=== PATIENT | female | born 1985 | race Caucasian/White ===

== ENCOUNTER 2019-10-18 17:16 | Inpatient (IN) | payer OTHER ==
[~2019-10-18] VITALS: Ht 160 cm; Wt 56.7 kg
[~2019-10-18 17:16] MED LIST: ACCUNEB 0.1.25 MG/1 INH; ALLEGRA180 MG PO; ANAPROX DS550 MG PO; BIAXIN500 MG PO; BUSPAR5 MG PO; CLARITIN10 MG PO; CLINDAMYCIN HC300 MG PO; CYMBALTA20 M1 PO; ERYTHROMYCIN5 MG/G1 OP; FLEXERIL10 MG PO; HYDROCODONE BIT1 T11 PO; IBU-6600 MG PO; IBU800 MG PO; KLONOPIN0.5 MG PO; MEDROL DOSEPAK4 MG; NAPROSYN500 MG PO; NEURONTIN300 MG PO; PHENERGAN W/DM120 ML PO; TRAMADOL HCL50 MG PO; TRAMADOL50 MG PO; VIBRAMYCIN100 MG PO; VICODIN 500 MG-1 TAB
[2019-10-18 17:23] VITALS: BP 114/77
[2019-10-18 17:54] LABS: BILIRUBIN 1+ (NEGATIVE); BLOOD 3+ (NEGATIVE); CLARITY CLOUDY (CLEAR); COLOR ORANGE (YELLOW); GLUCOSE NEGATIVE (NEGATIVE); KETONE NEGATIVE (NEGATIVE); LEUKO ESTERASE TRACE (NEGATIVE); NITRITE POSITIVE (NEGATIVE); PH 5.5 (5.0-9.0); SPECIFIC GRAVITY >= 1.030 (1.005-1.030)
[2019-10-18 18:03] LABS: BACTERIA 4+; EPITHELIAL CELLS 31-40
[2019-10-18 18:04] LABS: MUCOUS 3+; WBC 31-40 wbc/hpf (0-5)
[2019-10-18 18:28] LABS: BASO % 0.2 % (0.0-1.0); EOS # 0.1 10*3/uL (0.0-0.4); EOS % 0.3 % (1.0-4.0); HEMATOCRIT 36.3 % (37.0-47.0); HEMOGLOBIN 12.4 g/dl (12.0-16.0); LYMPH % 5.4 % (27.0-41.0); MEAN CELL VOLUME 86.6 fl (81.0-99.0); MEAN CORPUSCULAR HGB 29.6 pg (27.0-31.0); MEAN CORPUSCULAR HGB CONC 34.2 g/dl (33.0-37.0); MEAN PLATELET VOLUME 10.1 fl (9.6-12.3); MONO # 0.8 10*3/uL (0.1-1.0); MONO % 4.3 % (3.0-9.0); NEUT # 16.3 10*3/uL (2.3-7.9); NEUT % 88.7 % (47.0-73.0); PLATELET COUNT AUTOMATED 281 10*3/uL (130-400); RED BLOOD COUNT 4.19 10*6/uL (4.10-5.10); WHITE BLOOD COUNT 18.3 10*3/uL (4.8-10.8)
[2019-10-18 18:43] LABS: ALKALINE PHOSPHATASE 108 U/L (45-117); BUN 12 mg/dl (7-24); CHLORIDE 99 mmol/L (98-107); CREATININE 0.75 mg/dL (0.55-1.02); POTASSIUM 3.5 mmol/L (3.5-5.1); SGOT/AST 7 IU/L (3-35); SGPT/ALT 13 U/L (12-78); SODIUM 132 mmol/L (136-145); TOTAL PROTEIN 7.8 gm/dL (6.4-8.2)
--- NOTE | 2019-10-18 20:55 | NUR ---
PT REMAINS W/O ACUTE DISTRESS NOTED WITH FAMILY @ BEDSIDE,SAFETY PRECAUTIONS INTACT AND CALL LIGHT WITHIN REACH,PAIN RELIEF WITH MEDS.
[2019-10-18 21:30] VITALS: BP 113/69
[2019-10-18 22:32] VITALS: BP 104/54
[2019-10-18 22:36] VITALS: BP 104/54
--- NOTE | 2019-10-18 23:00 | NUR ---
A 34, admitted to 4E, under the services of STEVE Martinez MD with a diagnosis of SEVERE LOWER ABDOMINAL PAIN. Chief complaint is ABDOMINAL PAIN. Patient arrived via stretcher from ER. Monitor applied. Initial assessment completed. Vital signs taken and recorded. STEVE MARTINEZ MD notified of admission to the unit. Orders received. See assessment for past medical history, medications and allergies. Patient and/or family oriented to . visitation policy reviewed. Clothing/patient valuable form completed. HANNA WRIGHT RN
[2019-10-18] MEDS ORDERED: GABAPENTIN600 MG PO (23:04)
[2019-10-18] MEDS ORDERED: PANTOPRAZOLE SO40 MG PO (23:04)
[2019-10-18] MEDS ORDERED: ATARAX,VISTARIL50 MG PO (23:04)
[2019-10-18] MEDS ORDERED: VENLAFAXINE HC100 MG PO (23:05)
[2019-10-18] MEDS ORDERED: GOOD NEIGHBOR L10 MG PO (23:05)
[2019-10-18] MEDS ORDERED: ONDANSETRON HYDR4 MG PO (23:06)
--- NOTE | 2019-10-18 23:26 | NUR ---
DR. ARMSTRONG NOTIFIED OF PATIENT MEDICATION RECONCILIATION COMPLETED. ORDERS RECEIVED,SEE EMAR AND ORDERS.
--- NOTE | 2019-10-18 23:37 | NUR ---
DR. ARMSTRONG NOTIFIED AT THIS TIME THAT PER PHARMACY SCREEN UNASYN 1.5 GRAM IS UNAVAILABLE AT THIS TIME A SUBSTITUTION IS REQUIRED. PHARMACY CLOSED FOR THE DAY UNABLE TO CONSULT PHARMACIST FOR CONFORMATION OF SHORTAGE. PER [facility] [employer] F[employer] IT IS UNAVAILABE IN FACILITY AT THIS TIME. OTHER ORDERS RECEIVED, SEE EMAR.
--- NOTE | 2019-10-18 23:44 | NUR ---
DR. FRIAS NOTIFIED AT THIS TIME OF SURGICAL CONSULT, HE STATED THAT HE WAS MADE AWARE FROM ER.
[2019-10-19] VITALS: BP 112/63
--- NOTE | 2019-10-19 00:45 | NUR ---
PATIENT MEDICATED AT THIS TIME WITH PRN DILAUDID FOR RLQ ABDOMINAL PAIN. PATIENT ALERT AND ORIENTED AT THIS TIME.
--- NOTE | 2019-10-19 03:46 | NUR ---
24 HOUR CHART CHECK COMPLETE
[2019-10-19 06:01] LABS: BUN 10 mg/dl (7-24); CHLORIDE 104 mmol/L (98-107); POTASSIUM 3.2 mmol/L (3.5-5.1); SODIUM 135 mmol/L (136-145)
[2019-10-19 06:06] LABS: BASO % 0.2 % (0.0-1.0); EOS # 0.3 10*3/uL (0.0-0.4); EOS % 2.4 % (1.0-4.0); HEMATOCRIT 31.5 % (37.0-47.0); HEMOGLOBIN 10.4 g/dl (12.0-16.0); LYMPH # 0.7 10*3/uL (1.3-4.4); LYMPH % 5.3 % (27.0-41.0); MEAN CELL VOLUME 88.7 fl (81.0-99.0); MEAN CORPUSCULAR HGB 29.3 pg (27.0-31.0); MEAN PLATELET VOLUME 10.5 fl (9.6-12.3); MONO # 0.7 10*3/uL (0.1-1.0); MONO % 5.2 % (3.0-9.0); NEUT # 11.1 10*3/uL (2.3-7.9); PLATELET COUNT AUTOMATED 231 10*3/uL (130-400); RED BLOOD COUNT 3.55 10*6/uL (4.10-5.10); RED CELL DISTRI WIDTH 14.1 % (0-14.5); WHITE BLOOD COUNT 12.9 10*3/uL (4.8-10.8)
--- NOTE | 2019-10-19 07:30 | NUR ---
DR ARMSTRONG HERE TO ASSESS PATIENT AND DISCUSS PLAN OF CARE
[2019-10-19 08:00] VITALS: BP 122/60
--- NOTE | 2019-10-19 08:12 | NUR ---
medciated with demerol and zofran iv per prn order for complaints of rlq abd / flank pain rating a 10+. zofran also provided for nausea. will monitor
--- NOTE | 2019-10-19 08:50 | NUR ---
DR FRIAS HERE TO ASSESS PATIENT AND DISCUSS PLAN OF CARE
--- NOTE | 2019-10-19 09:00 | NUR ---
states meds helping.
--- NOTE | 2019-10-19 09:50 | NUR ---
FAMILY PRESENT ON FLOOR. MOTHER UPSET, STATING PATIENT CAN NOT GO 24+ HRS WITHOUT PROPER CARE - SHE WILL NOT "WATCH MY DAUGHTER ." CONCERNS ADDRESSED AND WILL RELAY INFO TO PRIMARY DR VALVERDE SURGEON.
--- NOTE | 2019-10-19 10:10 | NUR ---
SPOKE WITH ONE CALL FROM [facility]. LABS AND SCANS REVIEWED. FAMILY PRESENT AT BEDSIDE AND INFORMED OF PENDING TRANSFER
--- NOTE | 2019-10-19 10:22 | NUR ---
dr hickman called in. accepting dr is dr santiago at [facility]
--- NOTE | 2019-10-19 10:25 | NUR ---
again c/o pain. requesting pain meds. stat order received
--- NOTE | 2019-10-19 10:41 | NUR ---
STAT DEMEROL AND ZOFRAN GIVEN IV FOR COMPLAINTS OF RLQ/RIGHT FLANK PAIN RATING A 10 AND TO ASSIST WITH NAUSEA. WILL MONITOR
--- NOTE | 2019-10-19 10:55 | NUR ---
[facility] FOR TRANSPORT TO [facility]. PATIENT AND BELONGINGS LOADED. PATIENT DISCHARGED IN CARE OF AMBULANCE
--- NOTE | 2019-10-19 10:57 | NUR ---
DR ARMSTRONG CONTACTED AND INFORMED PATIENT BEING TRASNFERRED TO [facility]
--- NOTE | 2019-10-19 11:15 | NUR ---
REPORT CALLED TO KANDI AT [facility]. PATIENT TRANSFERRING VIA [facility] TO ROOM [id number]
== END 2019-10-19 11:15 | disposition short-term general hospital (02) | DRG 248 ==
LOC: ED 17:16 → 4E 22:01
PROVIDERS: Emergency Medicine; Nurse Practitioner Family; ADMIT Internal Medicine
DX: K35.33 Acute appendicitis with perforation, localized peritonitis, and gangrene, with abscess (principal); F32.9 Major depressive disorder, single episode, unspecified; F41.1 Generalized anxiety disorder; E87.6 Hypokalemia; Z88.1 Allergy status to other antibiotic agents; Z88.8 Allergy status to other drugs, medicaments and biological substances

== ENCOUNTER → 2019-11-04 | Outpatient (CLI) | payer OTHER ==
[~2019-11-04] MED LIST changes: +ATARAX,VISTARIL50 MG PO; +GABAPENTIN600 MG PO; +GOOD NEIGHBOR L10 MG PO; +ONDANSETRON HYDR4 MG PO; +PANTOPRAZOLE SO40 MG PO; +VENLAFAXINE HC100 MG PO
== END | disposition home or self-care (01) ==
LOC: CT 10:57
DX: K35.33 Acute appendicitis with perforation, localized peritonitis, and gangrene, with abscess (principal)

== ENCOUNTER 2021-05-23 16:09 | Emergency (ER) | payer OTHER ==
[~2021-05-23] VITALS: Ht 160 cm; Wt 68.0 kg
[2021-05-23 16:32] VITALS: BP 137/78
[2021-05-23] MEDS ORDERED: HYDROCODONE-AC1 EAC1 PO (17:07)
== END 2021-05-23 18:41 | disposition home or self-care (01) ==
LOC: ED 16:09
DX: T23.202A Burn of second degree of left hand, unspecified site, initial encounter (principal); F17.200 Nicotine dependence, unspecified, uncomplicated; Z88.1 Allergy status to other antibiotic agents; Z79.899 Other long term (current) drug therapy; X08.8XXA Exposure to other specified smoke, fire and flames, initial encounter; Y93.89 Activity, other specified; Y92.89 Other specified places as the place of occurrence of the external cause; Y99.8 Other external cause status

== ENCOUNTER → 2021-05-25 | Outpatient (CLI) | payer OTHER ==
[~2021-05-25] MED LIST changes: +HYDROCODONE-AC1 EAC1 PO
== END | disposition home or self-care (01) ==
LOC: WOUNDCARE 00:25
PROVIDERS: ATTEND Nurse Practitioner
DX: T23.232A Burn of second degree of multiple left fingers (nail), not including thumb, initial encounter (principal); T31.0 Burns involving less than 10% of body surface; J45.909 Unspecified asthma, uncomplicated; Z90.49 Acquired absence of other specified parts of digestive tract; Z79.899 Other long term (current) drug therapy; X12.XXXA Contact with other hot fluids, initial encounter; Y93.89 Activity, other specified; Y92.89 Other specified places as the place of occurrence of the external cause; Y99.8 Other external cause status

== ENCOUNTER → 2021-06-01 | Outpatient (CLI) | payer OTHER | LOC: WOUNDCARE 02:20 | PROVIDERS: ATTEND Nurse Practitioner | DX: T23.232D Burn of second degree of multiple left fingers (nail), not including thumb, subsequent encounter (principal); J45.909 Unspecified asthma, uncomplicated; Z90.49 Acquired absence of other specified parts of digestive tract; Z79.899 Other long term (current) drug therapy; X12.XXXD Contact with other hot fluids, subsequent encounter ==

== ENCOUNTER 2023-03-20 17:09 | Emergency (ER) | payer OTHER ==
[~2023-03-20] VITALS: Ht 160 cm; Wt 63.5 kg
[2023-03-20 17:29] VITALS: BP 119/68
== END 2023-03-20 20:19 | disposition home or self-care (01) ==
LOC: ED 17:09
DX: S10.93XA Contusion of unspecified part of neck, initial encounter (principal); R11.0 Nausea; R51.9 Headache, unspecified; J45.909 Unspecified asthma, uncomplicated; Z88.1 Allergy status to other antibiotic agents; Z88.8 Allergy status to other drugs, medicaments and biological substances; Z98.51 Tubal ligation status; W20.8XXA Other cause of strike by thrown, projected or falling object, initial encounter; Y93.89 Activity, other specified; Y92.89 Other specified places as the place of occurrence of the external cause; Y99.0 Civilian activity done for income or pay